=== PATIENT | female | born 1950 | race Caucasian/White ===

== ENCOUNTER 2020-01-18 10:49 | Outpatient (CLI) | payer MEDICARE, OTHER, SELFPAY ==
[2020-01-18 11:19] LABS: Basophils Percent Auto 0.4 % (0.2-1.2); Eosinophils Absolute Auto 0.3 K/mm3 (0-0.3); Eosinophils Percent Auto 4.5 % (0-4.4); Hematocrit 40.9 % (37.0-47.0); Hemoglobin 13.5 g/dL (12.0-15.0); Lymphocytes Absolute Auto 2.18 K/mm3 (0.9-3.2); Lymphocytes Percent Auto 39.2 % (18.3-44.2); Mean Corpuscular Hemoglobin 31.8 pg (26-34); Mean Corpuscular Volume 96.2 fl (80-100); Mean Platelet Volume 11.1 fl (7.4-10.4); Monocytes Absolute Auto 0.6 K/mm3 (0.1-0.6); Monocytes Percent Auto 10.4 % (2.6-8.5); Neutrophils Absolute Auto 2.5 K/mm3 (1.3-6.7); Neutrophils Percent Auto 45.5 % (45.5-73.1); Platelet Count Result 273 k/mm3 (150-375); Red Blood Count 4.25 M/mm3 (4.2-5.4); Red Cell Distribution Width 13.1 % (11.5-14.5); White Blood Count 5.6 K/mm3 (4.5-10.0)
[2020-01-18 11:35] LABS: Alanine Aminotransferase 19 U/L (4-35); Albumin Level 4.5 g/dL (3.5-5.1); Alkaline Phosphatase 107 U/L (38-126); Aspartate Amino Transferase 28 U/L (14-36); Bilirubin,Total 0.9 mg/dL (0.2-1.3); Blood Urea Nitrogen 15 mg/dL (7-17); Calcium 9.6 mg/dL (8.4-10.2); Carbon Dioxide 33 mmol/L (22-30); Chloride 102 mmol/L (98-107); Estimated Glomerular Filt Rate > 60; Glucose 102 mg/dL (65-105); Potassium 3.6 mmol/L (3.4-5.0); Sodium 141 mmol/L (137-145); Uric Acid 3.7 mg/dL (2.5-7.5)
== END 2020-01-18 10:50 | disposition home or self-care (01) ==
PROVIDERS: PCP Family Medicine; Visit Provider Family Medicine
DX: E78.2 Mixed hyperlipidemia (principal); I10 Essential (primary) hypertension
CPT/HCPCS: 36415; 80053; 84550; 85025

== ENCOUNTER 2021-01-10 09:53 | Outpatient (CLI) | payer MEDICARE, OTHER, SELFPAY ==
--- NOTE | ~2021-01-10 | XR_ITS ---
EXAMINATION: XR knee RT 3V DATE: 01/10/2021 10:29 INDICATION: Unilateral primary osteoarthritis, unspecified TECHNIQUE: Three views of the right knee were obtained. COMPARISON: 07/27/2013 FINDINGS: No fracture or osteochondral lesion. There is severe joint space narrowing in the lateral c ompartment, worse since the comparison examination. There is mild joint space narrowing in the patell ofemoral compartment. No joint effusion/synovitis. Soft tissues are unremarkable. IMPRESSION: 1. Severe osteoarthritis in the lateral compartment with interval worsening. Reviewed, dictated and finalized at location A.
[2021-01-10 10:51] LABS: Basophils Percent Auto 0.5 % (0.2-1.2); Eosinophils Absolute Auto 0.2 K/mm3 (0-0.3); Eosinophils Percent Auto 2.1 % (0-4.4); Hematocrit 40.3 % (37.0-47.0); Hemoglobin 13.3 g/dL (12.0-15.0); Immature Granulocyte Absolute 0.02 K/mm3 (0.00-0.031); Immature Granulocyte Percent A 0.3 % (0-0.5); Lymphocytes Absolute Auto 2.69 K/mm3 (0.9-3.2); Lymphocytes Percent Auto 34.7 % (18.3-44.2); Mean Corpuscular Hemoglobin 32.7 pg (26-34); Mean Platelet Volume 10.6 fl (7.4-10.4); Monocytes Absolute Auto 0.7 K/mm3 (0.1-0.6); Monocytes Percent Auto 9.5 % (2.6-8.5); Neutrophils Absolute Auto 4.1 K/mm3 (1.3-6.7); Neutrophils Percent Auto 52.9 % (45.5-73.1); Platelet Count Result 282 k/mm3 (150-375); Red Blood Count 4.07 M/mm3 (4.2-5.4); Red Cell Distribution Width 12.3 % (11.5-14.5); White Blood Count 7.8 K/mm3 (4.5-10.0)
[2021-01-10 11:00] LABS: Alanine Aminotransferase 21 U/L (4-35); Albumin Level 4.4 g/dL (3.5-5.1); Alkaline Phosphatase 80 U/L (38-126); Anion Gap 5 mmol/L (8-16); Aspartate Amino Transferase 30 U/L (14-36); Bilirubin,Total 0.8 mg/dL (0.2-1.3); Blood Urea Nitrogen 15 mg/dL (7-17); Calcium 9.8 mg/dL (8.4-10.2); Carbon Dioxide 32 mmol/L (22-30); Chloride 105 mmol/L (98-107); Cholesterol 228 mg/dL (0-200); Estimated Glomerular Filt Rate > 60; Glucose 99 mg/dL (65-105); HDL Direct 58 mg/dL; Potassium 3.5 mmol/L (3.4-5.0); Sodium 142 mmol/L (137-145); Triglycerides 117 mg/dL (<150)
[2021-01-10 11:11] LABS: LDL Cholesterol Direct 114 mg/dL
== END 2021-01-10 09:54 | disposition home or self-care (01) ==
LOC: ANHIMG 10:03
PROVIDERS: PCP Family Medicine; Visit Provider Family Medicine
DX: M17.10 Unilateral primary osteoarthritis, unspecified knee (principal); I10 Essential (primary) hypertension; E78.2 Mixed hyperlipidemia; R41.3 Other amnesia; F33.1 Major depressive disorder, recurrent, moderate
CPT/HCPCS: 36415; 73562; 80053; 80061; 84443; 85025

== ENCOUNTER 2022-01-14 08:06 | Outpatient (CLI) | payer MEDICARE, OTHER, SELFPAY ==
--- NOTE | ~2022-01-14 | MM_ITS ---
EXAMINATION: MM screening tin BI w zohreh HISTORY: Screening TECHNIQUE: Craniocaudal and mediolateral oblique 3-D tomosynthesis images were obtained and synthetic 2-D images were generated. CAD analysis was submitted and interpreted. COMPARISON: No prior mammogram is available for comparison at this institution. BREAST PARENCHYMAL COMPOSITION: There are scattered areas of fibroglandular density. FINDINGS: There are surgical changes centrally in the left breast, consistent with previous lumpectom y for breast cancer. There is a small mass located centrally in the right breast on CC view with poss ible additional smaller masses in the outer aspect of the right breast on CC view, partially obscured by fibroglandular tissue. No mammographic evidence for malignancy in the left breast. IMPRESSION: 1. Right breast masses. 2. Additional mammographic views and possible breast ultrasound are recommended. BI-RADS Category 0: Incomplete: Needs additional imaging evaluation. Reviewed, dictated and finalized at location A. IMPRESSION: 1. Right breast masses. 2. Additional mammographic views and possible breast ultrasound are recommended . BI-RADS Category 0: Incomplete: Needs additional imaging evaluation.
== END 2022-01-14 08:07 | disposition home or self-care (01) ==
PROVIDERS: PCP Family Medicine; Visit Provider Family Medicine
DX: Z12.31 Encounter for screening mammogram for malignant neoplasm of breast (principal); R92.8 Other abnormal and inconclusive findings on diagnostic imaging of breast
CPT/HCPCS: 77063; 77067

== ENCOUNTER 2022-01-21 12:00 | Outpatient (CLI) | payer MEDICARE, OTHER, SELFPAY ==
--- NOTE | ~2022-01-21 | MMUS_ITS ---
EXAMINATION: MM diagnostic tin RT w zohreh, US breast RT limited HISTORY: Right breast masses on screening mammogram TECHNIQUE: Additional 3-D tomosynthesis images of the right breast were performed and synthetic 2-D i mages were generated. CAD analysis was submitted and interpreted. High resolution limited right breas t ultrasound was performed. COMPARISON: 01/14/2022 FINDINGS: MAMMOGRAPHIC FINDINGS: There is a 5 mm oval, circumscribed, equal density mass at the 6:00 location in the posterior third o f the breast. There is an adjacent 4 mm obscured mass in the posterior third of the breast at the 6:0 0 location. No suspicious architectural distortion is identified. ULTRASOUND: There is a 6 mm x 5 mm oval, circumscribed, parallel, hypoechoic mass with no posterior features or i nternal vascularity at the 6:30 location 5 cm from the nipple. IMPRESSION: 1. Probably benign right breast masses however, prior mammograms have not yet arrived for comparison. Comparison with prior mammograms is necessary. BI-RADS Category 0: Incomplete: Needs comparison with prior mammograms. Reviewed, dictated and finalized at location A. IMPRESSION: 1. Probably benign right breast masses however, prior mammograms have not yet a rrived for comparison. Comparison with prior mammograms is necessary. BI-RADS Category 0: Incomplete: Needs comparison with prior mammograms.
== END 2022-01-21 12:01 | disposition home or self-care (01) ==
LOC: ANHIMG 12:01
PROVIDERS: PCP Family Medicine; Visit Provider Nurse Practitioner Gerontology
DX: N63.14 Unspecified lump in the right breast, lower inner quadrant (principal)
CPT/HCPCS: 76642; 77061; 77065; G0279

== ENCOUNTER 2022-06-10 09:52 | Outpatient (CLI) | payer MEDICARE, OTHER, SELFPAY ==
[2022-06-10 10:13] LABS: Basophils Percent Auto 0.5 % (0.2-1.2); Eosinophils Absolute Auto 0.2 K/mm3 (0-0.3); Eosinophils Percent Auto 2.3 % (0-4.4); Hematocrit 38.6 % (37.0-47.0); Hemoglobin 12.6 g/dL (12.0-15.0); Immature Granulocyte Absolute 0.02 K/mm3 (0.00-0.031); Immature Granulocyte Percent A 0.3 % (0-0.5); Lymphocytes Percent Auto 27.1 % (18.3-44.2); Mean Corpuscular HGB Conc 32.6 g/dl (32-36); Mean Corpuscular Hemoglobin 32.3 pg (26-34); Mean Platelet Volume 10.8 fl (7.4-10.4); Monocytes Absolute Auto 0.8 K/mm3 (0.1-0.6); Monocytes Percent Auto 10.1 % (2.6-8.5); Neutrophils Absolute Auto 4.4 K/mm3 (1.3-6.7); Neutrophils Percent Auto 59.7 % (45.5-73.1); Platelet Count Result 239 k/mm3 (150-375); White Blood Count 7.4 K/mm3 (4.5-10.0)
[2022-06-10 11:05] LABS: Alanine Aminotransferase 19 U/L (6-35); Albumin Level 4.2 g/dL (3.5-5.1); Alkaline Phosphatase 110 U/L (38-126); Anion Gap 9 mmol/L (8-16); Aspartate Amino Transferase 28 U/L (14-36); Bilirubin,Total 0.9 mg/dL (0.2-1.3); Blood Urea Nitrogen 20 mg/dL (7-17); Calcium 9.2 mg/dL (8.4-10.2); Carbon Dioxide 28 mmol/L (22-30); Chloride 104 mmol/L (98-107); Cholesterol 205 mg/dL (0-200); Estimated Glomerular Filt Rate > 60; Glucose 103 mg/dL (65-110); HDL Direct 51 mg/dL; Potassium 3.4 mmol/L (3.4-5.0); Sodium 141 mmol/L (137-145); Triglycerides 146 mg/dL (<150)
[2022-06-10 11:16] LABS: LDL Cholesterol Direct 103 mg/dL
== END 2022-06-10 09:53 | disposition home or self-care (01) ==
PROVIDERS: PCP Family Medicine; Visit Provider Family Medicine
DX: E53.8 Deficiency of other specified B group vitamins (principal); I10 Essential (primary) hypertension; E78.2 Mixed hyperlipidemia; E03.9 Hypothyroidism, unspecified
CPT/HCPCS: 36415; 80053; 80061; 82607; 84443; 85025

== ENCOUNTER → 2023-03-28 09:55 | Outpatient (CLI) | payer MEDICARE, SELFPAY ==
--- NOTE | ~2023-03-28 | MM_ITS ---
EXAMINATION: MM screening tin BI w zohreh HISTORY: Screening mammogram TECHNIQUE: Craniocaudal and mediolateral oblique 3-D tomosynthesis images were obtained and synthetic 2-D images were generated. CAD analysis was submitted and interpreted. COMPARISON: 01/21/2022 diagnostic right mammogram and limited right breast ultrasound examination 01/14/2022 bilateral screening mammogram 05/01/2018 outside bilateral screening mammogram BREAST PARENCHYMAL COMPOSITION: There are scattered areas of fibroglandular density. FINDINGS: And stable postoperative change of left breast following partial mastectomy for breast canc er. There is no evidence of suspicious mass, calcification, or new architectural distortion to sugges t malignancy in either breast. There has been no suspicious interval change. IMPRESSION: 1. Status post left partial mastectomy for breast cancer. No mammographic evidence of malignancy. 2. Recommend routine screening mammography in one year. BI-RADS Category 2: Benign finding(s). Reviewed, dictated and finalized at location A. IMPRESSION: 1. Status post left partial mastectomy for breast cancer. No mammographic evide nce of malignancy. 2. Recommend routine screening mammography in one year. BI-RADS Category 2: Benign finding(s).
== END ==
PROVIDERS: PCP Family Medicine; Visit Provider Physician Assistant
DX: Z12.31 Encounter for screening mammogram for malignant neoplasm of breast (principal)
CPT/HCPCS: 77063; 77067

== ENCOUNTER 2024-09-28 11:22 | Outpatient (CLI) | payer MEDICARE, OTHER, SELFPAY ==
[2024-09-28 12:11] LABS: Alanine Aminotransferase 18 U/L (6-35); Albumin Level 3.7 g/dL (3.5-5.1); Alkaline Phosphatase 80 U/L (38-126); Anion Gap 8 mmol/L (4-12); Aspartate Amino Transferase 22 U/L (14-36); Bilirubin,Total 0.6 mg/dL (0.2-1.3); Blood Urea Nitrogen 20 mg/dL (7-17); Carbon Dioxide 27 mmol/L (22-30); Chloride 106 mmol/L (98-107); Estimated Glomerular Filt Rate > 60; Glucose 113 mg/dL (65-110); Potassium 3.6 mmol/L (3.4-5.0); Sodium 141 mmol/L (137-145)
--- OUTSIDE RECORDS SUMMARY | 2024-09-29 23:54 | XMS_ITS | Clinical Summary ---
Author Organization [facility] Address [address] [place] [address] Care Team Providers Care Superintendent Power Name Role Phone Skye Garcia MD Primary Care Provider [phone] Allergies No known active allergies Medications metoprolol succinate ER 24 hour (TOPROL XL) 25 mg Oral tabletIndications :Malignant neoplasm of breast (female), unspecified site (CMS/HCC) Take 50 mg by mouth 2 times daily . Active CALCIUM CARBONATE/VITAMIN D3 (CALCIUM 600 + D,3, ORAL)Indications: Malignant neoplasm of breast (female), unspecified site (CMS/HCC) Take by mouth daily. 2 tabs Active 0mega-3 fatty acids-vitamin E (FISH OIL) 1,000 mg Oral CapIndications:Ma lignant neoplasm of breast (female), unspecified site (CMS/HCC) Take 1,000 mg by mouth daily. Active Garlic Oral CapIndications:Ma lignant neoplasm of breast (female), unspecified site (CMS/HCC) Take by mouth daily. Active coenzyme Q10 (CO Q-10) Oral Cap Take 10 mg by mouth daily. Active raloxifene (EVISTA) 60 mg tablet Take 1 Tab by mouth daily. 90 Tab 3 10/06/2014 Active losartan-hydrochl orothiazide (HYZAAR) 100-12.5 mg tablet Take 1 Tab by mouth daily. Active Active Problems Patient Care Coordination No te Formatting of this note migh t be different from the original. Primary Care: Josh León DO Referring Provider: Josh León DO No address on file Other: Problem Noted Date Diagnosed Date Osteopenia 03/09/2014 Malignant neoplasm of female breast 03/01/2010 Overview (03/01/2010): 1995,L breast,lumpectomy,LN,RT T1N0,medullary carcinoma,ER-,[place]- CMF day 09/14 x 6 Social History Tobacco Use Types Packs/Day Years Used Date Smoking Tobacco: Never Smokeless Tobacco: Never Tobacco Cessation:Counseling Given: No Alcohol Use Standard Drinks/Week Comments No 0 (1 standard drink = 0.6 oz pur e alcohol) Comments No Sex and Gender Information Value Date Recorded Sex Assigned at Not on file 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 Gender Identity Not on file Sexual Orientation Not on file Last Filed Vital Signs Vital Sign Reading Time Taken Comments Blood Pressure 131/77 04/01/2016 10:15 AM CDT Pulse 69 04/01/2016 10:15 AM CDT Temperature 36.8 ??C (98.3 ??F) 04/01/2016 10:15 AM C DT Respiratory Rate 20 04/01/2016 10:15 AM CDT Oxygen Saturation - - Inhaled Oxygen Concentration - - Weight 89.8 kg (198 lb) 04/01/2016 10:15 AM CDT Height 167.6 cm (5' 6 ) 04/01/2016 10:15 AM CDT Body Mass Index 31.96 04/01/2016 10:15 AM CDT Plan of Treatment Health Maintenance Due Date Last Done Comments DTAP/TDAP/TD VACCINES (1 - Tdap) 1967 PNEUMOCOCCAL VACCINE 65+ YEA RS (1 of 1 - PCV) 1998 ZOSTER VACCINE (1 of 2) 1998 RSV VACCINE (60+ or ) (1 - 1-dose 75+ series) 2023 INFLUENZA VACCINE (#1) 2024 OSTEOPOROSIS SCREENING Completed 8, 03/08/2016, 03/08/2016, Additional history exists Procedures Procedure Name Priority Date/Time Associated Diagnosis Comments XR DEXA BONE DENSITY AXIAL 1 OR MORE SITES Routine 03/08/2016 Post-menopausal Osteopenia from Last 3 Months or Most Recently Relevant to Health Maintenance Results * XR DEXA BONE DENSITY AXIAL 1 OR MORE SITES (03/08/2016) T-SCORE FEMUR -1.0 - 1.0 EXTER NAL RADIOLOGY T-SCORE FEMUR (LEFT) -1.0 - 1.0 EXTERNAL RADIOLOGY T-SCORE FEMUR (RIGHT) -1.0 - 1.0 EXTERNAL RADIOLOGY T-SCORE FEMUR NECK -1.0 - 1.0 EXTERNAL RADIOLOGY T-SCORE FEMORAL NECK (LEFT) -1.0 - 1.0 EXTERNAL RADIOLOGY T-SCORE FEMORAL NECK (RIGHT) -1.0 - 1.0 EXTERNAL RADIOLOGY T-SCORE HEEL -1.0 - 1.0 GAS OR WATER METER INSTALLER AL RADIOLOGY T-SCORE HEEL (LEFT) -1.0 - 1.0 EXTERNAL RADIOLOGY T-SCORE HEEL (RIGHT) -1.0 - 1.0 EXTERNAL RADIOLOGY T-SCORE HIP -1.0 - 1.0 EXTERNA L RADIOLOGY T-SCORE HIP (LEFT) -1.0 - 1.0 EXTERNAL RADIOLOGY T-SCORE HIP (RIGHT) -1.0 - 1.0 EXTERNAL RADIOLOGY T-SCORE WRIST -1.0 - 1.0 EXTER NAL RADIOLOGY T-SCORE WRIST (LEFT) -1.0 - 1.0 EXTERNAL RADIOLOGY T-SCORE WRIST (RIGHT) -1.0 - 1.0 EXTERNAL RADIOLOGY T-SCORE SPINE -1.0 - 1.0 EXTER NAL RADIOLOGY Anatomical Region Laterality Modality Other Rose Pardo MD DIAGNOSTIC IMAGING ORDERABLES Final Result from Last 3 Months or Most Recently Relevant to Health Maintenance Insurance MEDICARE [facility]ILROAD [facility] Care Teams Superintendent Power Relationship Specialty Start Date End Date Skye Garcia MD PCP - General Family Practice 04/01/16
--- OUTSIDE RECORDS SUMMARY | 2024-09-29 23:54 | XMS_ITS ---
Author Organization [facility] Address [address] [place] [address] Care Team Providers Care Assisted Living Care Manager Name Role Phone Skye Garcia MD Primary Care Provider Active Problems Problem Noted Date Diagnosed Date Osteoarthritis 01/10/2022 Primary osteoarthritis of right knee 08/22/2021 Osteopenia 03/09/2014 Malignant neoplasm of female breast 03/01/2010 Overview (01/10/2022): 1994,L breast,lumpectomy,LN,RT T1N0,medullary carcinoma,ER-,[place]- CMF day 09/14 x 6 Current Oncology Plans No current plan information found. Past Plans No past plan information found. Radiation Treatments * No radiation treatments are documented for this patient in [facility]. Treatments may have been administered in another system. Lifetime Dose Tracking * Chemical Lifetime Dose Automatic Entry Manual Entr y DLP 884 mGycm 884 mGycm 0 mGycm
--- OUTSIDE RECORDS SUMMARY | 2024-09-29 23:54 | XMS_ITS | Clinical Summary ---
Author Organization [facility] Address [address] [place] [address] Care Team Providers Care Forest Practices Field Coordinator Name Role Phone Skye Garcia MD Primary Care Provider Allergies No known active allergies Medications losartan-hydroCH LOROthiazide (HYZAAR) 100-12.5 mg per tabletIndication s:hypertension Take by mouth every morning Active metoprolol XL (TOPROL-XL) 25 mg extended release tabletIndication s:hypertension Take 2 tablets (50 mg total) by mouth 2 (two) times a day Active raloxifene (EVISTA) 60 mg tabletIndication s:Post-Menopausa l Osteoporosis Prevention Take 60 mg by mouth every morning 5 Active sertraline (ZOLOFT) 25 mg tabletIndication s:Anxiety with Depression,depre ssion Take 1 tablet (25 mg total) by mouth 2 (two) times a day 2 Active cholecalciferol (VITAMIN D-3) 2000 unit capsule 2,000 Units every morning Active folic acid (FOLVITE) 1 mg tablet Take 1 mg by mouth every morning Active calcium carbonate (CALCIUM 500 ORAL) Take by mouth 2 (two) times a day Active aspirin 81 mg enteric coated tabletIndication s:prevention of thrombosis Take 1 tablet (81 mg total) by mouth 2 (two) times a day 60 tablet 2 Active senna-docusate (PERICOLACE) 8.6-50 mg Take 2 tablets by mouth 2 (two) times a day 80 tablet 1 2 Active Additional Information Patient not taking.Reported on 06/10/2024 meloxicam (MOBIC) 7.5 mg tabletIndication s:Pain Take 1 tablet (7.5 mg total) by mouth daily 30 tablet 2 Active cyclobenzaprine (FLEXERIL) 5 mg tablet Take 1 tablet (5 mg total) by mouth 3 (three) times a day as needed for muscle spasms 30 tablet 2 Active Additional Information Patient not taking.Reported on 06/10/2024 acetaminophen 500 mg capsuleIndicatio ns:Pain Take 2 capsules (1,000 mg total) by mouth every 8 (eight) hours 90 tablet 2 Active Additional Information Patient not taking.Reported on 06/10/2024 traMADoL (ULTRAM) 50 mg tablet Take 1 tablet (50 mg total) by mouth every 6 (six) hours as needed for pain 42 tablet 2 Active Additional Information Patient not taking.Reported on 05/23/2022 ondansetron (ZOFRAN) 4 mg tablet 2 Active memantine-donepe ziL 14-10 mg capsule,sprinkle ,ER 24hr Take by mouth Active QUEtiapine (SEROquel) 25 mg tablet Take 1 tablet (25 mg total) by mouth daily as needed (Agitation) 30 tablet 11 4 06/10/20 25 Active QUEtiapine (SEROquel) 50 mg tablet Take 1 tablet (50 mg total) by mouth 2 (two) times a day 60 tablet 10 4 Active busPIRone (BUSPAR) 5 mg tabletIndication s:Generalized Anxiety Disorder Take 1 tablet (5 mg total) by mouth 3 (three) times a day 270 tablet 1 4 08/23/20 25 Active Active Problems Problem Noted Date Diagnosed Date Osteoarthritis 01/10/2022 Primary osteoarthritis of right knee 08/22/2021 Osteopenia 03/09/2014 Malignant neoplasm of female breast 03/01/2010 Overview (01/10/2022): 1995,L breast,lumpectomy,LN,RT T1N0,medullary carcinoma,ER-,[place]- CMF day 09/14 x 6 Encounters Date Type Department Care Team Description 07/19/2024 7:32 AM INPUT OUTPUT CLERK - 07/19/2024 11:59 PM INPUT OUTPUT CLERK Hospital Encounter [facility] [address] [place] [address] 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, psychotic disturbance, mood disturbance, or anxiety (HCC) Discharge Disposition: Discharge to home or self care from Last 3 Months Immunizations Name Administration Dates Next Due Influenza, Quad, Adjuvantate d, Intramuscular 06/04/2020 Influenza, Quadrivalent, Hig h Dose, Preservative Free, Intrr 06/01/2021 Influenza, Trivalent, High D ose, Split, Preservative Free, Intramuscular 06/02/2019,05/31/2018,06/01/2017,06/12,06/14/2015,06/02/2014 Surgical History Surgery Date Site/Laterality Comments CHOLECYSTECTOMY BREAST LUMPECTOMY Medical History Medical History Date Comments Breast CA (HCC) HTN (hypertension) Family History Medical History Relation Name Comments Anesthesia problems Neg Hx Social History Tobacco Use Types Packs/Day Years Used Date Smoking Tobacco: Never Smokeless Tobacco: Never Tobacco Cessation:Counseling Given: Not Answered AUDIT-C Answer Date Recorded Q1: How often do you have a drink containing alc ohol? Never 02/19/2022 Average Number of Drinks Not on file 022 Frequency of Binge Drinking Not on file 02/05 Comments No Sex and Gender Information Value Date Recorded Sex Assigned at Not on file Legal Sex Female 2:19 AM INPUT OUTPUT CLERK Gender Identity Not on file Sexual Orientation Not on file Obstetrics History Last Filed Vital Signs Vital Sign Reading Time Taken Comments Blood Pressure 100/67 06/10/2024 12:34 PM CDT Pulse 60 06/10/2024 12:34 PM CDT Temperature 36.2 ??C (97.2 ??F) 02/20/2022 8:12 AM CD T Respiratory Rate 16 02/20/2022 8:12 AM CDT Oxygen Saturation 97% 02/20/2022 8:12 AM CDT Inhaled Oxygen Concentration - - Weight 72.1 kg (159 lb) 06/10/2024 12:34 PM CDT Height 167.6 cm (5' 6 ) 06/10/2024 12:34 PM CDT Body Mass Index 25.66 06/10/2024 12:34 PM CDT Plan of Treatment Health Maintenance Due Date Last Done Comments Depression Screening 1950 Hepatitis C Screening 1950 DTaP/Tdap/Td Vaccine (1 - Tdap) 1959 Hepatitis B Screening 1966 Zoster Vaccine (1 of 2) 1998 Pneumococcal vaccine 65+ (1 of 1 - PCV) 2013 Well Visit 65+ 2013 Osteoporosis Screening-Bone Density Scan 03/08/2018 03/08/2016, 03/08/2016, 03/04/2014, Additional history exists Fall Risk Assessment 02/20/2023 02/20/2022 Covid-19 Vaccine (4 - 2023-2 5 season) 2024 06/02/2021, 11/25/2020, 11/03/2020 Influenza Vaccine (#1) 2024 , 06/04/2020, 06/02/2019, Additional history exists Breast Cancer Screening-Mammogram Discontinued 03/08/2016, 03/05/2015, 03/04/2014, Additional history exists Medical Devices Implanted Type Area Residential Aide Device Identifier Shelf Expiration Date Model / Serial / Lot [employer] Simplex P Full Dose Radiopaque Preblend Cement Bone Tobramycin 6197-9-010 - [id number] Implanted:Qty: 1 on 02/19/2022 by Travis Tran MD at [facility] Right: Knee [employer] 06/06/2023 6197-9-01 0 / / [id number] [employer] Simplex P Full Dose Radiopaque Preblend Cement Bone Tobramycin 6197-9-010 - [id number] Implanted:Qty: 1 on 02/19/2022 by Travis Tran MD at [facility] Right: Knee [employer] 02/04/2023 6197-9-01 0 / / [id number] [employer] Triathlon Knee 3 [place] Baseplate Tibial Cocr 5521-B-300 - [id number] Implanted:Qty: 1 on 02/19/2022 by Travis Tran MD at [facility] Right: Knee [employer] [id number] 11/06/2026 5521-B-30 0 / / [id number] [employer] Triathlon Cruciate Retaining Cemented Knee Right 4 Component 5510-F-402 - [id number] Implanted:Qty: 1 on 02/19/2022 by Travis Tran MD at [facility] Right: Knee [employer] [id number] 07/02/2026 5510-F-40 2 / / [id number] [employer] Triathlon 16mm Bearing Condylar Stabilize Knee 3 Insert Tibial 9885-W-547-E - [id number] Implanted:Qty: 1 on 02/19/2022 by Travis Tran MD at [facility] Right: Knee [employer] [id number] 05/07/2024 5531-G-31 6-E / / [id number] Explanted Type Area Residential Aide Device Identifier Shelf Expiration Date Model / Serial / Lot [employer] [id number] 4mm 140mm Knee Straight Pin Fixation Sterile - [id number] Explanted:Qty: 1 on 02/19/2022 by Travis Tran MD at [facility] Right: Knee [employer] 09/22/2026 [id number] / / Description:FOR PROVISIONAL PURPOSE ONLY/ NOT AN IMPLANT Procedures Procedure Name Priority Date/Time Associated Diagnosis Comments MRI BRAIN WO CONTRAST Schedule Routine, Read Routine (OP Routine) 07/19/2024 8:36 AM INPUT OUTPUT CLERK 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 ??Atrophy and small vessel disease. Electronically signed by: Uri Massey M.D. Narrative 07/19/2024 8:56 AM INPUT OUTPUT CLERK EXAMINATION: MRI BRAIN WO CONTRAST HISTORY: 73-year-old woman diagnosis of dementia with behavioral disturbance. ??History of breast carcinoma hypertension TECHNIQUE: Multiplanar multisequence spin-echo images obtained. FINDINGS: No prior brain imaging studies are available. ??Moderate involutional changes are seen with prominent ventricles and cortical sulci. ??No midline shift or mass effect is seen on the T1-weighted images. ??The craniovertebral junction is normal. ??Due to fossa normal. ??Aqueduct patent. FLAIR images demonstrate small areas of T2 hyperintensity in the periventricular and subcortical deep white matter consistent with mild chronic microvascular disease. The diffusion images demonstrate no restricted diffusion. T2-weighted images demonstrate normal flow voids within the [place]. ??Brainstem and cerebellar hemispheres are normal. ??Deep venous sinuses appear to be patent. ??Mucosal inflammatory changes are seen in the left mastoid air cells. Susceptibility images demonstrate no susceptibility artifacts. Procedure Note Uri Massey MD - 07/19/2024 EXAMINATION: MRI BRAIN WO CONTRAST HISTORY: 73-year-old woman diagnosis of dementia with behavioral disturbance. History of breast carcinoma hypertension TECHNIQUE: Multiplanar multisequence spin-echo images obtained. FINDINGS: No prior brain imaging studies are available. Moderate involutional changes are seen with prominent ventricles and cortical sulci. No midline shift or mass effect is seen on the T1-weighted images. The craniovertebral junction is normal. Due to fossa normal. Aqueduct patent. FLAIR images demonstrate small areas of T2 hyperintensity in the periventricular and subcortical deep white matter consistent with mild chronic microvascular disease. The diffusion images demonstrate no restricted diffusion. T2-weighted images demonstrate normal flow voids within the [place]. Brainstem and cerebellar hemispheres are normal. Deep venous sinuses appear to be patent. Mucosal inflammatory changes are seen in the left mastoid air cells. Susceptibility images demonstrate no susceptibility artifacts. IMPRESSION: No acute findings. Atrophy and small vessel disease. Electronically signed by: Uri Massey M.D. us Yamileth Price MD [facility] MRI PROCEDURES Final Result from Last 3 Months Insurance MEDICARE RAILROAD [facility] [place] [address] MEDICARE RAILROAD [facility] [place] [address] Advance Directives For more information, please contact: [phone] Documents on File Type Date Recorded Patient House Coordinator Expl anation Power of Outreach Consultant 02/19/2022 7:50 AM * Full Code (Latest Code Status on File) Date Activated Date Inactivated Comments 02/19/2022 11:32 AM 02/20/2022 3:50 PM Care Teams Forest Practices Field Coordinator Relationship Specialty Start Date End Date Skye Garcia MD [address] [facility] [address] [place] [address] PCP - General 11/10/11
--- OUTSIDE RECORDS SUMMARY | 2024-09-29 23:54 | XMS_ITS | Referral Summary ---
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, psychotic disturbance, mood disturbance, or anxiety (HCC) Discharge Disposition: Discharge to home or self care from Last 3 Months Allergies No known active allergies Medications losartan-hydroCH [...] breast 03/01/2010 Overview (01/10/2022): 1995,L breast,lumpectomy,LN,RT T1N0,medullary carcinoma,ER-,MD- CMF day 09/14 x 6 Immunizations Name Administration Dates Next Due Influenza, Quad, Adjuvantate d, Intramuscular 06/04/2020 Influenza, Quadrivalent, Hig h Dose, Preservative Free, Intrr 06/01/2021 Influenza, Trivalent, High D ose, Split, Preservative Free, Intramuscular 06/02/2019,05/31/2018,06/01/2017,06/12,06/14/2015,06/02/2014 Social History Tobacco Use Types Packs/Day Years [...] on file Legal Sex Female 2:19 AM [employer] Gender Identity Not on file Sexual Orientation [...] 06/10/2024 12:34 PM CDT Plan of Treatment Not on file Medical Devices Implanted Type Area Assistant Banquet Manager Device Identifier Shelf Expiration Date Model / Serial / Lot [employer] Simplex P Full Dose Radiopaque Preblend Cement Bone Tobramycin 6197-9-010 - [id number] Implanted:Qty: 1 on 02/19/2022 by Travis Tran MD at [facility] Right: Knee [employer] 06/06/2023 6197-9-01 0 / / [id number] [employer] Simplex P Full Dose Radiopaque Preblend Cement Bone Tobramycin 6197-9-010 - [id number] Implanted:Qty: 1 on 02/19/2022 by Travis Tran MD at [facility] Right: Knee [employer] 02/04/2023 6197-9-01 0 / / [id number] [employer] Triathlon Knee 3 [place] Baseplate Tibial Cocr 5521-B-300 - [id number] Implanted:Qty: 1 on 02/19/2022 by Travis Tran MD at [facility] Right: Knee [employer] [id number] 11/06/2026 5521-B-30 0 / / [id number] [employer] Triathlon Cruciate Retaining Cemented Knee Right 4 Component 5510-F-402 - [id number] Implanted:Qty: 1 on 02/19/2022 by Travis Tran MD at [facility] Right: Knee [employer] [id number] 07/02/2026 5510-F-40 2 / / [id number] [employer] Triathlon 16mm Bearing Condylar Stabilize Knee 3 Insert Tibial 9754-P-160-E - [id number] Implanted:Qty: 1 on 02/19/2022 by Travis Tran MD at [facility] Right: Knee [employer] [id number] 05/07/2024 5531-G-31 6-E / / [id number] Explanted Type Area Assistant Banquet Manager Device Identifier Shelf Expiration Date Model / Serial / Lot [employer] [id number] 4mm 140mm Knee Straight Pin Fixation Sterile - [id number] Explanted:Qty: 1 on 02/19/2022 by Travis Tran MD at [facility] Right: Knee [employer] 09/22/2026 [id number] / / Description:FOR PROVISIONAL PURPOSE ONLY/ NOT AN IMPLANT Procedures Procedure Name Priority Date/Time Associated Diagnosis Comments MRI BRAIN WO CONTRAST Schedule Routine, Read Routine (OP Routine) 07/19/2024 8:36 AM [employer] 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, psychotic disturbance, mood disturbance, or anxiety (HCC) from Last 3 Months Results * MRI Brain WO Contrast (07/19/2024 8:36 AM [employer]) Anatomical Region Laterality Modality Head and Neck N/A Magnetic Resonan ce 07/19/2024 8:56 AM [employer] Impressions 07/19/2024 8:56 AM [employer] No acute findings. ??Atrophy and small vessel disease. Electronically signed by: Uri Massey M.D. Narrative 07/19/2024 8:56 AM [employer] EXAMINATION: MRI BRAIN WO CONTRAST HISTORY: 73-year-old [...] images demonstrate normal flow voids within the [place]. ??Brainstem and cerebellar hemispheres are [...] images demonstrate normal flow voids within the [place]. Brainstem and cerebellar hemispheres are normal. Deep venous sinuses appear to be patent. Mucosal inflammatory changes are seen in the left mastoid air cells. Susceptibility images demonstrate no susceptibility artifacts. IMPRESSION: No acute findings. Atrophy and small vessel disease. Electronically signed by: Uri Massey M.D. Yamileth Price MD IMG MRI PROCEDURES Final Result from Last 3 Months Insurance MEDICARE [employer] [facility] [place] [address] [facility] [place] [address] Advance Directives For more information, please contact: [phone] Documents on File Type Date Recorded Patient Resin Coater Expl anation Power of Metal Bonding Assembler 02/19/2022 7:50 AM * Full Code (Latest Code Status on File) Date Activated Date Inactivated Comments 02/19/2022 11:32 AM 02/20/2022 3:50 PM Care Teams Swing Frame Grinder Operator Relationship Specialty Start Date End Date Skye Garcia MD [address] [place] [address] PCP - General 11/10/11
--- OUTSIDE RECORDS SUMMARY | 2024-09-29 23:54 | XMS_ITS | CONTINUITY OF CARE DOCUMENT ---
Author Name anatoly ledbetter Address Unknown Organization [facility] Address [address] [place] [address] Phone [phone] Care Team Providers Care Commissary Helper Name Role Phone anatoly ledbetter Unavailable Unavailable
== END 2024-09-28 11:23 | disposition home or self-care (01) ==
PROVIDERS: PCP Family Medicine; Visit Provider Family Medicine
DX: I10 Essential (primary) hypertension (principal)
CPT/HCPCS: 36415; 80053